=== PATIENT | male | born 1985 | race Caucasian/White ===

== ENCOUNTER 2017-05-19 06:40 | Emergency (ER) | payer SELFPAY ==
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
--- NOTE | 2017-05-19 08:45 | XRay Report ---
Portable supine chest: Tube placement An endotracheal tube tip is located in the proximal right mainstem bronchus. Withdrawal of the tube approximately 3-4 cm is recommended. A left chest tube is present with no pneumothorax and no pulmonary infiltrate identified. There is extensive artifact over the lungs that could obscures the presence of a rib fracture. No obvious pulmonary infiltrate however is noted. The mediastinal contour is unremarkable. Impressions: 1. Suboptimal ET tube placement requiring adjustment. 2. Left chest tube with no pneumothorax noted.
[2017-05-19] MEDS ORDERED: ADRENALIN ONE (14:26)
[2017-05-19] MEDS ORDERED: XYLOCAINE CARDIAC IV ONE (14:26)
[2017-05-19] MEDS ORDERED: SODIUM BICARBONATE IV ONE (14:26)
[2017-05-19] MEDS ORDERED: CORDARONE IV ONE (14:26)
== END 2017-05-19 11:00 ==
LOC: ED 06:40
DX: I46.9 Cardiac arrest, cause unspecified (principal)
CPT/HCPCS: 32551; 36556; 71010; 86850; 86900; 86901; 86920; 92950; 99285; J0171; J0282; J2001; P9016